=== PATIENT | female | born 1955 | race African-American/Black ===

== ENCOUNTER 2017-06-01 07:52 | Day surgery (SDC) | payer OTHER ==
[2017-05-29 13:36] VITALS: BMI 38.4
[2017-06-01] MEDS ORDERED: Heparin 10,000 UNITS/1 ML VIAL ONE (09:08)
[2017-06-01 09:28] LABS: #Eosinphils 0.1 thou/uL (0.0-0.7); #Lymphocytes 1.4 thou/uL (1.20-3.40); #Monocytes 0.3 thou/uL (0.11-0.59); #Neutrophils 1.1 thou/uL (1.40-6.50); %Basophils 0.5 % (0.0-1.0); %Eosinophils 3.2 % (0.0-10.0); %Lymphocytes 46.7 % (21.0-51.0); %Monocytes 11.1 % (0.0-10.0); Hematocrit 44.5 % (36.0-47.0); Red Blood Cell (RBC) Count 4.81 mill/uL (4.20-5.40); White Blood Cell (WBC) Count 2.9 thou/uL (4.8-10.8)
[2017-06-01 09:36] LABS: Prothrombin Time 12.3 SEC (12.0-14.7)
[2017-06-01 09:40] LABS: PTT 19.9 SEC (22.9-36.1)
--- NOTE | 2017-06-01 10:06 | PRG ---
DATE OF SERVICE: 06/01/2017 Ms. Adam is a very pleasant 62-year-old female that presents with a protracted course of right-si ded tinnitus, but also right occipital pain. She had a noninvasive imaging performed prior to this o ccasion, which suggested possible vascular loop near the IAC. Given her constellation of symptoms an d this questionable vascular loop, we have counseled her with respect to cerebral angiogram for more definitive diagnosis. The plan today will be to inject internal and external vessels. I did review with her and her partner, the risks, benefits, and alternatives to this procedure. I answered all of their questions. I believe they understood the procedure and associated risks and benefits and they provided informed consent.
[2017-06-01] MEDS ORDERED: Acetaminophen/Codeine 30-300mg Tablet ONE (12:11)
[2017-06-01] MEDS ORDERED: Iopamidol 370 76% 50 ML VIAL FS ONE (14:20)
--- NOTE | 2017-06-02 08:21 | CCL ---
RADIOLOGY PROCEDURE NOTE: Date: 06/01/17 SURGEON: Nilesh Nicole M.D. DRAG DOWN: None. INDICATION: Obtain diagnosis. DIAGNOSIS: Right pulsatile tinnitus. PROCEDURE: Cerebral angiogram. ANESTHESIA: Local. TECHNIQUE: The patient was brought into the angiogram suite and placed on the table in the supine position. Both groins were prepped and draped in the usual sterile fashion. 1% lidocaine was used to inject the lef t common femoral artery. We had difficulty accessing the artery, so we redirected our attention to th e right, where again lidocaine was used to inject this region. A 4 Afghan micropuncture set was used to gain access to the right common femoral artery. Using the Seldinger technique, the needle was pritesh ale and a 5 Afghan sheath was placed. A 5 Afghan diagnostic catheter passed over a [employer] wire was a dvanced into the aortic arch where the right external carotid artery was selectively catheterized. An AP and lateral angiogram was performed. We then placed the catheter selectively within the right int ernal carotid artery where an AP and lateral angiogram was performed. All catheters were then remove d. Hemostasis was maintained with manual compression. The procedure came to an end without complicati on. FINDINGS: Cerebral angiography was performed via two injections, one of the right external carotid artery and t he second of the right internal carotid artery. There is no evidence for early filling vein or AV fis landon. There does appear to be a PCOM infundibulum, which measures no more than 3 mm in size.
== END 2017-06-01 14:05 | disposition home or self-care (01) ==
LOC: CCL 07:52
PROVIDERS: ATTEND Neurological Surgery
PROC: B3161ZZ Fluoroscopy of Right Internal Carotid Artery using Low Osmolar Contrast (ICD-10-PCS; principal; 2017-06-01)
PROC: B3191ZZ Fluoroscopy of Right External Carotid Artery using Low Osmolar Contrast (ICD-10-PCS; principal; 2017-06-01)
DX: H93.A1 Pulsatile tinnitus, right ear (principal); Z88.0 Allergy status to penicillin
CPT/HCPCS: 36224; 36227; 36415; 85025; 85610; 85730; J1644